=== PATIENT | female | born 1995 | race Caucasian/White ===

== ENCOUNTER 2018-02-07 08:20 | Emergency (ER) | payer SELFPAY ==
[2018-02-07] MEDS ORDERED: Lidocaine 1% 20 ML MDV ONE (08:31)
[2018-02-07] MEDS ORDERED: Adacel (T-DAP) 0.5 ML VIAL ONE (08:48)
[2018-02-07] MEDS ORDERED: Cephalexin 500 MG CAP ONE (09:06)
== END 2018-02-07 09:17 | disposition home or self-care (01) ==
LOC: BURERS 08:20
DX: S61.211A Laceration without foreign body of left index finger without damage to nail, initial encounter (principal); W45.8XXA Other foreign body or object entering through skin, initial encounter
CPT/HCPCS: 12001; 90471; 90715; J2001